=== PATIENT | female | born 1965 | race Hispanic/Latino ===

== ENCOUNTER 2016-11-13 10:38 | Observation (INO) | payer MEDICAID, OTHER ==
[2016-11-13 10:42] VITALS: BMI 27.8
[2016-11-13] MEDS ORDERED: Sodium Chloride 0.9% 1,000 ML IV STA (11:08)
--- NOTE | 2016-11-13 11:09 | ED PDOC ---
Arrival/HPI - General Chief Complaint: Chest Pain Time Seen by Provider: 11/13/16 10:51 Historian: Patient, Other (daughter) - History of Present Illness Narrative History of Present Illness (Text): 11/13/16 11:27 A 50 year old female, who denies any past medical history, presents to the emergency department complaining of neck pain radiating to back and left side of chest that developed 5 days ago. Patient reports taking aspirin this morning. Patient denies any other complaints at this time. Patient states that she has no shortness of breath or dyspnea exertion. States her chest, back, neck Pain are reproducible with movement and palpation. Time/Duration: < week Symptom Onset: Sudden Symptom Course: Unchanged Activities at Onset: Rest Context: Home Past Medical History - Provider Review Nursing Documentation Reviewed: Yes - Infectious Disease Hx of Infectious Diseases: None - Psychiatric Hx Substance Use: No - Anesthesia Hx Anesthesia: No Hx Anesthesia Reactions: No Hx Malignant Hyperthermia: No Family/Social History - Physician Review Nursing Documentation Reviewed: Yes Family/Social History: No Known Family HX Smoking Status: Light Smoker < 10 Cigarettes Daily Hx Alcohol Use: Yes Frequency of alcohol use: Socially Hx Substance Use: No Allergies/Home Meds Allergies/Adverse Reactions: Allergies No Known Allergies Allergy (Verified 11/13/16 10:44) Review of Systems - Physician Review All systems were reviewed & negative as marked: Yes Physical Exam - Physical Exam Narrative Physical Exam (Text): 11/13/16 11:18- Review of Systems Constitutional: Normal. absent: Fatigue, Weight Change, Fevers Eyes: Normal ENT: Normal Respiratory: Normal absent: SOB, Cough, Sputum Cardiovascular: Present: chest pain absent: Palpitations, Syncope Gastrointestinal: Normal absent: Abdominal pain, Diarrhea, Nausea, Vomiting Genitourinary: Normal. absent: Dysuria, Frequency, Hematuria Musculoskeletal: Present: back pain, neck pain absent: Arthralgias Skin: Normal Neurological: Normal absent: Focal Weakness Endocrine: Normal Hemo/Lymphatic: Normal Psychiatric: Normal - Physical exam Patient appears age appropriate, speaking full sentences without difficulty - Systems Exam Head: Present: Atraumatic, Normocephalic Pupils: Present: PERRL Extraocular Muscles: Present: EOMI Conjunctiva: Present: Normal Mouth: Present: Moist Mucous Membranes Neck: Present: Normal Range of Motion. No: MIDLINE TENDERNESS, Paraspinal Tenderness Respiratory/Chest: Present: Clear to Auscultation, Good Air Exchange. No: Respiratory Distress, Accessory Muscle Use, Tachypnic Cardiovascular: Present: Regular Rate and Rhythm, Normal S1, S2, Peripheral Pulses Present. No: Murmurs Abdomen: Present: Normal Bowel Sounds, No: Tenderness, Peritoneal Signs, Rebound, Guarding, Distention Back: Present: pain to palpation along L scapula. Pain quality reproduced with palpation. No midline tenderness. Upper Extremity: Present: Normal Inspection. No: Cyanosis, Edema Lower Extremity: Present: Normal Inspection. No: Edema Neurological: Present: GCS=15, Speech Normal, cranial nerves II through XII fully intact with no cerebellar abnormality, neuro-sensory fully intact. No focal neurological deficits. Skin: Present: Warm, Dry, Normal Color. No: Rashes Lymphatic: Present: OX3, NI, NC Psychiatric: Present: Alert, Oriented x 3, Normal Insight, Normal Concentration Vital Signs Reviewed: Yes Vital Signs Temp Pulse Resp BP Pulse Ox 11/13/16 12:42 65 16 148/74 96 11/13/16 10:47 98.1 F 63 18 114/73 97 Temperature: Afebrile Blood Pressure: Normal Pulse: Regular Respiratory Rate: Normal Appearance: Positive for: Well-Appearing, Non-Toxic, Comfortable Pain Distress: None Mental Status: Positive for: Alert and Oriented X 3 Medical Decision Making ED Course and Treatment: 11/13/16 11:23 Patient has a history of smoking. Smoking Cessation Counseling: The patient was counseled as to the multiple risks to his/her health from continued use of tobacco products. It was explained that continuing to smoke may lead to multiple short and longterm negative health consequences, including but not limited to mouth/esophageal /lung cancer, COPD, and heart disease. He/she states he/she understands these risks, and also understands the options and resources available to him/her to help him/her stop smoking. Nicotine replacement therapy, local hotlines, and local resources were discussed as viable options for helping him/her stop his/her tobacco use. The total time spent counseling the patient regarding tobacco cessation was 4 minutes. Plan: -- EKG -- CT angio chest -- chest xray -- labs -- IV fluids, Toradol Chest xray interpreted by ED physician shows no pneumothorax, no cardiomegaly, no infiltrates pt's HEART score low. 2 sets of cardiac enzymes and an EKG ordered I had a long discussion with patient that our initial evaluation has not shown evidence of a heart attack. Patient verbalized understanding that even if these tests are normal, symptoms may still be a warning sign of a future heart attack and it is very important for patient to arrange outpatient cardiology follow up Patient was agreeable to observation in the emergency room, and understood that this will prolong the length of stay Observation and further evaluation was offered as inpatient, but patient asked to be discharged home with outpatient follow up instead. 11/13/16 15:13 Patient's CAT scan shows a long nodule. Patient understands that she is to follow-up with primary physician for further workup and possibly follow-up imaging. Pt currently asymptomatic, denies cp/back pain, lindsey/sob. States she feels well. Had a long and extensive d/w patient about f/u with a district associate judge for further workup and testing as well as a primary physician. Explained to patient that although her ER w/u did not show any acute abnormalities, patient still needs further testing which may include an echo, stress test, cardiac cath, or others. Pt states she understands to return to the ER right away for new or worsening symptoms or for inability to f/u with PMD or specialist as instructed. Patient states that she fully agrees with and understands discharge instructions. States that she agrees with the plan and disposition. Verbalized and repeated discharge instructions and plan. I have given the patient opportunity to ask any additional questions. - Lab Interpretations I have reviewed the lab results: Yes - RAD Interpretation Radiology Orders: 11/13/16 11:07 ANGIO CHEST PE PROTOCOL [CT] Stat - EKG Interpretation Interpreted by ED Physician: Yes Type: 12 lead EKG - Medication Orders Current Medication Orders: Discontinued Medications Sodium Chloride (Sodium Chloride 0.9%) 1,000 mls @ 1,000 mls/hr IV .Q1H STA Stop: 11/13/16 12:07 Last Admin: 11/13/16 11:15 Dose: 1,000 mls/hr Ketorolac Tromethamine (Toradol) 15 mg IVP STAT STA Stop: 11/13/16 11:09 Last Admin: 11/13/16 11:19 Dose: 15 mg ED OBSERVATION Discharge: Yes Date of observation admission: 11/13/16 Time of observation admission: 11:06 - Observation admission statement Patient is being placed in observation because:: neck pain radiating to back and chest - Goals of Observation Goals of observation are:: monitor patient symptoms and repeat troponin - Progress Note Progress Note: 11/13/16 13:06 Patient is in no acute distress. - Scribe Statement The provider has reviewed the documentation as recorded by the Scribe Perry Hines Provider Scribe Attestation: All medical record entries made by the Scribe were at my direction and personally dictated by me. I have reviewed the chart and agree that the record accurately reflects my personal performance of the history, physical exam, medical decision making, and the department course for this patient. I have also personally directed, reviewed, and agree with the discharge instructions and disposition. Disposition/Present on Arrival - Present on Arrival Any Indicators Present on Arrival: No History of DVT/PE: No History of Uncontrolled Diabetes: No Urinary Catheter: No History of Decub. Ulcer: No History Surgical Site Infection Following: None - Disposition Have Diagnosis and Disposition been Completed?: Yes Diagnosis: Chest pain Disposition: HOME/ ROUTINE Disposition Time: 11:06 Patient Plan: Discharge Patient Problems: Current Active Problems Problem Status Onset Chest pain Acute Condition: GOOD
[2016-11-13 11:24] LABS: ADD MANUAL DIFF? NO
[2016-11-13 11:26] LABS: BASO # 0.05 K/mm3 (0.0-2.0); BASO % 0.6 % (0.0-3.0); EOS # 0.3 (0.0-0.7); GRAN # 4.46 (1.4-6.5); GRAN % 57.1 % (50.0-68.0); HEMATOCRIT 37.8 % (36.0-48.0); LYMPH # 2.3 (1.2-3.4); MEAN CELL VOLUME 90.6 fL (80.0-105.0); MEAN CORPUSCULAR HEMOGLOBIN 30.2 pg (25.0-35.0); MEAN CORPUSCULAR HGB CONC 33.3 g/dl (31.0-37.0); MEAN PLATELET VOLUME 9.4 fl (7.0-11.0); MONO # 0.7 (0.1-0.6); MONO % 9.3 % (1.0-6.0); PLATELET COUNT 227 10^3/uL (120.0-450.0); RED CELL DISTRIBUTION WIDTH 13.4 % (11.5-14.5); WHITE BLOOD COUNT 7.8 10^3/ul (4.5-11.0)
[2016-11-13 11:37] LABS: ALB/GLOB RATIO 1.1 (1.1-1.8); ALKALINE PHOSPHATASE 49 U/L (38-133); ALT/SGPT 30 U/L (7-56); AST/SGOT 25 U/L (15-39); BILIRUBIN,TOTAL 0.4 mg/dL (0.2-1.3); BLOOD UREA NITROGEN 21 mg/dL (7-21); CALCIUM 9.2 mg/dL (8.4-10.5); CARBON DIOXIDE 29 mmol/L (21-33); CHLORIDE 104 mmol/L (98-107); GFR AFRICAN-AMERICAN > 60; GLUCOSE,RANDOM 88 mg/dL (70-110); POTASSIUM 4.6 mmol/L (3.6-5.0); SODIUM 138 mmol/L (132-148); TOTAL PROTEIN 7.3 g/dL (5.8-8.3)
[2016-11-13 11:45] LABS: INR 0.94 (0.93-1.08); PARTIAL THROMBOPLASTIN TIME 25.9 Seconds (23.7-30.8)
[2016-11-13 11:51] LABS: TROPONIN I < 0.01 ng/mL
[2016-11-13 12:43] VITALS: RESP 16
--- NOTE | 2016-11-13 13:27 | RAD ---
PROCEDURE: CHEST RADIOGRAPH, 1 VIEW HISTORY: Chest pain COMPARISON: None available. FINDINGS: LUNGS: The lungs are clear. PLEURA: No pneumothorax or pleural fluid seen. CARDIOVASCULAR: Normal. OSSEOUS STRUCTURES: No significant abnormalities. VISUALIZED UPPER ABDOMEN: Normal. OTHER FINDINGS: None. IMPRESSION: No active pulmonary disease.
--- NOTE | 2016-11-13 13:42 | CT ---
PROCEDURE: CT Chest with contrast (Pulmonary Angiogram) HISTORY: r/o PE COMPARISON: None available. TECHNIQUE: Axial computed tomography images were obtained of the chest in the pulmonary arterial phase of enhancement. Coronal and sagittal reformatted images were created and reviewed. Intravenous contrast dose: 100 mL Visipaque Radiation dose: Total exam DLP = 426.50 mGy-cm. This CT exam was performed using one or more of the following dose reduction techniques: Automated exposure control, adjustment of the mA and/or kV according to patient size, and/or use of iterative reconstruction technique. FINDINGS: PULMONARY ARTERIES: There are no filling defects in the pulmonary arteries to suggest acute pulmonary embolism. AORTA: The aorta is normal in caliber. No evidence of aortic dissection. LUNGS: There is a 5 mm nodule in the right middle lobe (series 5, image 62). There is subsegmental atelectasis in the right lower lobe. There is linear atelectasis/ scarring in the right lung base and left lateral lung base. There is no consolidation PLEURAL SPACES: No effusion or pneumothorax. HEART: The heart is normal in size. No pericardial effusion. LYMPH NODES: No pathologic lymphadenopathy. BONES, CHEST WALL: No fracture or destructive lesion there is diffuse bone demineralization and mild multilevel degenerative disc disease. OTHER FINDINGS: Unremarkable. IMPRESSION: 1. No evidence of acute pulmonary embolism, aortic aneurysm or aortic dissection. 2. 5 mm nodule in the right middle lobe. If the patient is a high risk for lung cancer, follow-up CT scan in 12 month interval is recommended to assess stability.
[2016-11-13 15:02] LABS: TROPONIN I < 0.01 ng/mL
[2016-11-13 15:27] VITALS: BP 144/78; PULSE 58; TEMP 98.3; O2SAT 99
--- NOTE | 2016-11-14 09:22 | CARD ---
APPROVED REPORT EKG Measurement Heart [id number] <Conclusion> Normal sinus rhythm Normal ECG
== END 2016-11-13 15:15 | disposition home or self-care (01) ==
LOC: ED 10:38 → EROBSV 11:08
PROVIDERS: ADMIT Emergency Medicine; ATTEND Emergency Medicine
DX: R07.9 Chest pain, unspecified (principal)
CPT/HCPCS: 71010; 71275; 80053; 82550; 83615; 84484; 85025; 85610; 85730; 93005; 96361; 96374; 99284; G0378; J1885; J7040